=== PATIENT | male | born 1940 | race Caucasian/White ===

== ENCOUNTER 2017-01-11 11:18 | Day surgery (SDC) | payer MEDICARE, BC ==
[2017-01-07 11:37] LABS: WBC (NOT ORDERED) (RFLEX) 0 (0-5)
[2017-01-07 12:11] LABS: BASOPHILS 0.7 %; BASOPHILS ABSOLUTE 0.05 10/3/uL (0.0-0.16); EOSINOPHILS 2.2 %; EOSINOPHILS ABSOLUTE 0.15 10/3/uL (0.0-0.53); HEMATOCRIT 42.3 % (40.0-51.0); HEMOGLOBIN 14.6 g/dL (13.6-17.8); IMMATURE GRANULOCYTES 0.1 %; IMMATURE GRANULOCYTES ABSOLUTE 0.01 10/3/uL (0.0-0.11); LYMPHOCYTES 36.9 %; LYMPHOCYTES ABSOLUTE 2.49 10/3/uL (0.67-4.30); MEAN CORPUS HGB CONC 34.5 g/dL (32.0-36.0); MEAN CORPUSCULAR HEMOGLOB 29.9 pg (26.0-34.0); MEAN CORPUSCULAR VOLUME 86.5 fL (80-100); MEAN PLATELET VOLUME 9.8 fL (9.2-13.0); MONOCYTES 6.1 %; MONOCYTES ABSOLUTE 0.41 10/3/uL (0.21-1.20); NEUTROPHILS ABSOLUTE 3.63 10/3/uL (2.02-8.40); PLATELET COUNT 214 10/3/uL (150-400); RBC DISTRIBUTION WIDTH 12.8 % (12.0-16.0); RED CELL COUNT 4.89 10/6/uL (4.7-6.1); WHITE BLOOD CELLS 6.7 10/3/uL (4.5-10.5)
[2017-01-07 12:13] LABS: ASCORBIC ACID (UR NOT ORDER) NEG (NEG); BILIRUBIN, URINE NEGATIVE (NEG); KETONE, URINE NEGATIVE (NEG); LEUKOCYTE ESTERASE(NOT OR NEG (NEG); MANUAL DIFF NO %
[2017-01-07 12:22] LABS: BUN (BLOOD UREA NITROGEN) 21 MG/DL (6-23); CALCIUM, SERUM 9.2 MG/DL (8.5-10.4); CHLORIDE, SERUM 104 MMOL/L (96-112); CO2 (CARBON DIOXIDE) 29 MMOL/L (24-34); GFR AFRICAN AMERICAN 52 ML/MIN (>=60); GFR NON AFRICAN AMERICAN 45 ML/MIN (>=60); GLUCOSE, SERUM 190 MG/DL (60-99); POTASSIUM, SERUM 3.7 MMOL/L (3.5-5.3); SODIUM, SERUM 141 MMOL/L (135-148)
--- NOTE | ~2017-01-11 | OP ---
Record Of Operation [facility] [address] [place] [address] NAME: POLO RUGGIERO : 42 STATUS : [facility]#: [id number] AGE: 76 ADM/REG DATE : 01/11/17 MR#: [id number] REPORT SERV DATE: 01/11/17 DICTATED BY: CHRIS CANALES III DATE: 01/11/17 REPORT STATUS : Draft TRANSCRIBED BY: MODL DATE: 01/11/17 DATE OF PROCEDURE: 01/11/2017 PROCEDURE: ESWL to left ureteral calculus. PREOPERATIVE DIAGNOSIS: Left ureteral calculus. POSTOPERATIVE DIAGNOSIS: Left ureteral calculus. ANESTHESIA: General. PROCEDURE IN DETAIL: Following induction of adequate general anesthesia, the patient was placed in the supine position. The stone was placed and positioned in the cross hairs of both monitor screens, and 3000 shocks were applied up to a power level of 5. His blood pressure dropped, and he was given ephedrine immediately upon induction and remained in the 70 to 90 range. He tolerated that well with cessation of the anesthetic that began to come back up. He will be taken to recovery room and will be discharged home when he is alert, oriented, voiding, and taking fluids. The stone did appear to fragment nicely. OB/MODL Chris Canales III, M.D. / [id number] CC: Katie Bush III, PAUL E
[~2017-01-11 11:18] MED LIST: AMIT10 PO; ASAB PO; COZAAR100 MG PO; GLUCOPHAGE1000 MG PO; GLUCOTROL5 PO; HUMULIN SC; HYDROCHLOROT25 MG PO; HYT5 PO; METOPROLOL; ZOCOR20 PO
[2017-01-11 13:02] LABS: PFA (COL/EPI) 91 SEC (72-180)
== END 2017-01-11 21:23 | disposition home or self-care (01) ==
LOC: SDC 11:18
PROVIDERS: Urology
PROC: 0TF7XZZ Fragmentation in Left Ureter, External Approach (ICD-10-PCS; principal; 2017-01-11 14:00)
DX: N20.1 Calculus of ureter (principal); I10 Essential (primary) hypertension; E11.9 Type 2 diabetes mellitus without complications; E78.5 Hyperlipidemia, unspecified; E78.00 Pure hypercholesterolemia, unspecified; M19.90 Unspecified osteoarthritis, unspecified site; E66.9 Obesity, unspecified; Z68.30 Body mass index [BMI] 30.0-30.9, adult; Z79.82 Long term (current) use of aspirin; Z79.4 Long term (current) use of insulin; Z79.899 Other long term (current) drug therapy; Z87.891 Personal history of nicotine dependence; Z96.1 Presence of intraocular lens; Z98.41 Cataract extraction status, right eye; Z98.42 Cataract extraction status, left eye; Z90.49 Acquired absence of other specified parts of digestive tract; Z90.89 Acquired absence of other organs; Z98.890 Other specified postprocedural states; Z87.442 Personal history of urinary calculi
CPT/HCPCS: 50590; 74000; 80048; 81001; 82962; 85025; 85576; 93005; A9270-GY; J2250; J2370; J2405; J3010